=== PATIENT | male | born 1990 | race Caucasian/White ===

== ENCOUNTER 2020-10-17 20:39 | Emergency (ER) | payer BC ==
[2020-10-17 21:58] LABS: HEMOGLOBIN 15.8 gm/dl (14.0-17.5); RED BLOOD COUNT 5.23 M/UL (4.20-5.50)
[2020-10-17 22:18] LABS: BUN/CREATININE RATIO 12 (0-10)
[2020-10-18] MEDS ORDERED: PERCOCET 5-3251 EACH PO (00:33)
[2020-10-18] MEDS ORDERED: ZOFRAN ODT 4 MG4 MG PO (00:33)
[2020-10-18] MEDS ORDERED: FLOMAX 0.4 MG0.4 MG PO (00:33)
== END 2020-10-18 00:49 | disposition home or self-care (01) ==
LOC: ER1 20:39
PROVIDERS: Student in an Organized Health Care Education/Training Program
DX: N13.2 Hydronephrosis with renal and ureteral calculous obstruction (principal)
CPT/HCPCS: 80053; 83605; 83690; 85025; 96374; 96375; 99284; J1170; J2270; J2405; J7120; Q9965